=== PATIENT | male | born 1960 | race Caucasian/White ===

== ENCOUNTER 2024-07-08 07:33 | Day surgery (SDC) | payer MEDICAID, OTHER ==
[2024-07-08] MEDS: Lactated Ringers 1,000 ML IV SCH (08:09)
[2024-07-08] MEDS ORDERED: fentaNYL 50 MCG/ML SDV ONE (08:15)
[2024-07-08] MEDS ORDERED: Midazolam 1 MG/ML 2 ML SDV ONE (08:15)
[2024-07-08] MEDS ORDERED: Propofol 200 MG/20 ML SDV ONE (08:15)
[2024-07-08 11:09] VITALS: BP 133/89; PULSE 72
== END 2024-07-08 10:59 | disposition home or self-care (01) ==
LOC: JP.SDS 07:33
PROVIDERS: ATTEND Surgery
DX: K21.9 Gastro-esophageal reflux disease without esophagitis (principal); K22.89 Other specified disease of esophagus; E66.9 Obesity, unspecified; Z80.0 Family history of malignant neoplasm of digestive organs
CPT/HCPCS: 43239; J2250; J2704; J3010; J7120